=== PATIENT | female | born 1970 | race Caucasian/White ===

== ENCOUNTER 2020-07-07 03:50 | Emergency (ER) | payer OTHER ==
[~2020-07-07] VITALS: Ht 185.4 cm; Wt 118.2 kg
[2020-07-07] MEDS ORDERED: PRED20TA PO (04:29)
[2020-07-07] MEDS ORDERED: IBUPROFEN 200 MG TABLET. PO ONE (04:30)
[2020-07-07] MEDS ORDERED: methylPREDNISolone SOD SUCC PF 125 MG/2 ML VIAL. IM ONE (04:30)
[2020-07-07] MEDS ORDERED: FAMOTIDINE 20 MG TABLET. PO ONE (04:30)
--- NOTE | 2020-07-07 04:31 | PHYS DOC ---
Past Medical History Past Medical History: Other Additional Past Medical Histor: LUPUS Past Surgical History: Hysterectomy Additional Past Surgical Histo: FEET, NOSE AND KNEE SX Smoking Status: Current Every Day Smoker Alcohol Use: Occasionally Social History Narrative: SMOKE MARIJUANA TODAY General Adult EDM: Chief Complaint: ALLERGIC REACTION HPI: HPI: Patient is a 49 year old female presents for evaluation due to poison elena. Patient states came in contact with poison elena on wednesday. Patient with rash on face, chest, abdomen and groin. Rash and itch has progressively become worse. Patient has taken otc benadrly with mild relief. Denies airway issues. Review of Systems: Review of Systems: Constitutional: Denies fever or chills. [] Eyes: Denies change in visual acuity. [] HENT: Denies nasal congestion or sore throat. [] Respiratory: Denies cough or shortness of breath. [] Cardiovascular: Denies chest pain or edema. [] GI: Denies abdominal pain, nausea, vomiting, bloody stools or diarrhea. [] : Denies dysuria. [] Musculoskeletal: Denies back pain or joint pain. [] Integument: positive rash Neurologic: Denies headache, focal weakness or sensory changes. [] Endocrine: Denies polyuria or polydipsia. [] Lymphatic: Denies swollen glands. [] Psychiatric: Denies depression or anxiety. [] Heart Score: Risk Factors: Risk Factors: DM, Current or recent (<one month) smoker, HTN, HLP, family history of CAD, obesity. Risk Scores: Score 0 - 3: 2.5% MACE over next 6 weeks - Discharge Home Score 4 - 6: 20.3% MACE over next 6 weeks - Admit for Clinical Observation Score 7 - 10: 72.7% MACE over next 6 weeks - Early Invasive Strategies Current Medications: Current Medications Medications (Trade) Dose Ordered Sig/Kamille Start Time Stop Time Status Last Admin Dose Admin Famotidine (Pepcid) 40 mg 1X ONCE 07/07/20 04:15 07/07/20 04:16 UNV Ibuprofen (Motrin) 600 mg 1X ONCE 07/07/20 04:15 07/07/20 04:16 UNV Methylprednisolone Sodium Succinate (SOLU-Medrol 125MG VIAL) 125 mg 1X ONCE 07/07/20 04:15 07/07/20 04:16 UNV Allergies: Allergies: Allergies Coded Allergies Type Severity Reaction Last Updated Verified No Known Drug Allergies 07/07/20 No Physical Exam: PE: Constitutional: Well developed, well nourished, no acute distress, non-toxic appearance. [] HENT: Normocephalic, atraumatic, bilateral external ears normal, oropharynx moist, no oral exudates, nose normal. [] Eyes: PERRLA, EOMI, conjunctiva normal, no discharge. [] Neck: Normal range of motion, no tenderness, supple, no stridor. [] Cardiovascular:Heart rate regular rhythm, no murmur [] Lungs & Thorax: Bilateral breath sounds clear to auscultation [] Abdomen: Bowel sounds normal, soft, no tenderness, no masses, no pulsatile masses. [] Skin: Warm, dry, rash redness and swelling periorbital, arms chest and abdomen Back: No tenderness, no CVA tenderness. [] Extremities: No tenderness, no cyanosis, no clubbing, ROM intact, no edema. [] Neurologic: Alert and oriented X 3, normal motor function, normal sensory function, no focal deficits noted. [] Psychologic: Affect normal, judgement normal, mood normal. [] Current Patient Data: Vital Signs: Vital Signs Date Time Temp Pulse Resp B/P (MAP) Pulse Ox O2 Delivery O2 Flow Rate FiO2 07/07/20 03:57 97.1 73 20 98 Room Air 97.1 EKG: EKG: [] Radiology/Procedures: Radiology/Procedures: [] Course & Med Decision Making: Course & Med Decision Making Pertinent Labs and Imaging studies reviewed. (See chart for details) []Treatment with solumedrol and pepcid. Dc on on prednisone. Benjy Disclaimer: Benjy Disclaimer: This electronic medical record was generated, in whole or in part, using a voice recognition dictation system. Departure Departure Impression: Primary Impression: Contact dermatitis Additional Impression: Poison elena dermatitis Disposition: 01 HOME, SELF-CARE Condition: STABLE Patient Instructions: Poison Elena Scripts Prednisone (PREDNISONE) 20 Mg Tablet 1 TAB PO UD for 12 Days, #16 TAB Take 2 tabs days 1,2,3,4 1.5 tabs days 5,6,7,8 1 tab days 9,10,11,12 0.5 tab days 13,14,15,16 Prov: TAMMY DANGELO DO 07/07/20 Justicifation of Admission Dx: Justifications for Admission: Justification of Admission Dx: N/A TAMMY DANGELO I DO Jul 07, 2020 04:31
[2020-07-07 04:54] VITALS: BP 155/70
== END 2020-07-07 04:53 | disposition home or self-care (01) ==
LOC: ER 03:50
DX: L23.7 Allergic contact dermatitis due to plants, except food (principal); F17.200 Nicotine dependence, unspecified, uncomplicated; Z90.710 Acquired absence of both cervix and uterus; Z98.890 Other specified postprocedural states
CPT/HCPCS: 96372; 99283; J2930